=== PATIENT | female | born 1970 | race Native Hawaiian/Other Pacific Islander ===

== ENCOUNTER 2019-03-13 08:17 | Outpatient (CLI) | payer OTHER | END 2019-03-13 19:14 | disposition home or self-care (01) | LOC: MAMMO 08:17 | DX: Z12.31 Encounter for screening mammogram for malignant neoplasm of breast (principal) ==

== ENCOUNTER 2019-10-16 08:32 | Outpatient (CLI) | payer OTHER | END 2019-10-16 17:00 | disposition home or self-care (01) | LOC: RAD 08:32 | DX: M25.521 Pain in right elbow (principal); I10 Essential (primary) hypertension; E78.5 Hyperlipidemia, unspecified; G47.33 Obstructive sleep apnea (adult) (pediatric); F41.9 Anxiety disorder, unspecified ==

== ENCOUNTER 2020-03-20 08:04 | Outpatient (CLI) | payer OTHER | END 2020-03-20 19:06 | disposition home or self-care (01) | LOC: LAB 08:04 | DX: Z20.828 Contact with and (suspected) exposure to other viral communicable diseases (principal); I10 Essential (primary) hypertension; E78.5 Hyperlipidemia, unspecified; F41.9 Anxiety disorder, unspecified; G47.33 Obstructive sleep apnea (adult) (pediatric); R73.03 Prediabetes | CPT/HCPCS: 87635; G2023; U0002 ==

== ENCOUNTER 2020-04-26 09:15 | Emergency (ER) | payer OTHER ==
[~2020-04-26] VITALS: Ht 165.1 cm; Wt 77.1 kg
[2020-04-26 10:20] LABS: PLATELET COUNT 297 K/uL (152-353)
[2020-04-26 10:35] LABS: POTASSIUM 4.5 mmol/L (3.6-5.2)
[2020-04-26 13:36] VITALS: BP 126/78; TEMP 98.3
== END 2020-04-26 14:15 | disposition short-term general hospital (02) ==
LOC: ED 09:15
PROVIDERS: General Practice
DX: G00.8 Other bacterial meningitis (principal); B96.89 Other specified bacterial agents as the cause of diseases classified elsewhere
CPT/HCPCS: 36415; 80053; 80329; 83605; 83735; 85027; 86140; 87040; 96361; 96365; 96366; 96375; 99284; J0132; J0692; J2405

== ENCOUNTER 2020-05-01 11:49 | Emergency (ER) | payer OTHER ==
[~2020-05-01] VITALS: Ht 165.1 cm; Wt 77.1 kg
[2020-05-01 12:06] VITALS: TEMP 98.9
[2020-05-01 13:08] VITALS: BP 155/74
== END 2020-05-01 13:08 | disposition home or self-care (01) ==
LOC: ED 11:49
DX: G43.909 Migraine, unspecified, not intractable, without status migrainosus (principal)
CPT/HCPCS: 99283; J1200; J1885; J2405

== ENCOUNTER 2020-05-23 08:22 | Outpatient (CLI) | payer OTHER | END 2020-05-23 23:00 | disposition home or self-care (01) | LOC: MAMMO 08:22 | DX: Z12.31 Encounter for screening mammogram for malignant neoplasm of breast (principal) ==

== ENCOUNTER 2020-12-24 14:36 | Outpatient (CLI) | payer OTHER | END 2020-12-24 22:21 | disposition home or self-care (01) | LOC: INF 14:36 | PROVIDERS: ATTEND Internal Medicine | DX: Z23 Encounter for immunization (principal) | CPT/HCPCS: 96372 ==

== ENCOUNTER 2021-01-15 08:05 | Outpatient (CLI) | payer OTHER | END 2021-01-15 22:11 | disposition home or self-care (01) | LOC: INF 08:05 | PROVIDERS: ATTEND Internal Medicine | DX: Z23 Encounter for immunization (principal) | CPT/HCPCS: 96372 ==

== ENCOUNTER 2022-09-14 10:48 | Outpatient (CLI) | payer OTHER | END 2022-09-14 19:38 | disposition home or self-care (01) | LOC: RAD 10:48 | PROVIDERS: ATTEND Nurse Practitioner Family | DX: M25.551 Pain in right hip (principal) ==

== ENCOUNTER 2022-10-22 09:22 | Outpatient (CLI) | payer OTHER | END 2022-10-22 19:08 | disposition home or self-care (01) | LOC: MAMMO 09:22 | PROVIDERS: ATTEND Registered Nurse | DX: Z12.31 Encounter for screening mammogram for malignant neoplasm of breast (principal) ==